=== PATIENT | male | born 1950 ===

== ENCOUNTER 2022-03-15 08:39 | Observation (INO) | payer OTHER ==
--- NOTE | 2022-03-11 09:44 | RAD REPORT ---
EXAM DESCRIPTION: Dwayne Silverman (2 Views)03/11/2022 9:39 am CLINICAL HISTORY: Preop for knee surgery. Hypertension COMPARISON: None FINDINGS: The lungs appear clear of acute infiltrate. The heart is normal size IMPRESSION: No acute abnormalities displayed
[2022-03-11 10:12] LABS: Absolute Lymphocytes (CBC) 2.3 K/uL (0.7-4.9); Hematocrit 49.3 % (39.6-49.0); Lymphocytes % 29.2 % (15.3-44.8); MCV 89.7 fL (80-100); MPV 9.8 fL (7.6-11.3); Protime INR 1.01
[2022-03-11 10:15] LABS: Specific Gravity 1.015 (1.005-1.030); Urine Bilirubin NEGATIVE (Negative); Urine Blood Negative (Negative); Urine Clarity Clear (Clear); Urine Color Light-Yellow (Yellow); Urine Glucose 4+ (Over) (Negative); Urine Protein NEGATIVE (Negative); Urine Urobilinogen Normal (Normal)
[2022-03-11 10:26] LABS: Albumin 3.8 g/dL (3.4-5.0); Bilirubin Total 0.7 mg/dL (0.2-1.0); Potassium 3.8 mmol/L (3.5-5.1); Protein, Total 8.5 g/dL (6.4-8.2)
[2022-03-11 11:42] LABS: SARS-CoV-2 Antigen Rapid Res Negative (Negative)
[2022-03-15] MEDS ORDERED: Oxycodone HCl/Acetaminophen 1 TAB TAB ONE (09:44)
[2022-03-15] MEDS ORDERED: ACETAMINOPHEN 500 MG TAB PO ONE (09:47)
[2022-03-15] MEDS ORDERED: GABAPENTIN 100 MG CAP PO ONE (09:47)
[2022-03-15] MEDS ORDERED: CELECOXIB 100 MG CAPSULE PO ONE (09:47)
[2022-03-15] MEDS ORDERED: TRANEXAMIC ACID 1,000 MG/10 ML VIAL IV ONE (10:23)
[2022-03-15] MEDS ORDERED: HYDROMORPHONE HCL 1 MG/ML INJ ONE (10:42)
[2022-03-15] MEDS ORDERED: dexAMETHasone 10 MG/ML VIAL ONE ×2 (10:45→10:46)
[2022-03-15] MEDS ORDERED: EPINEPHRINE/PF 1 MG/ML AMP ONE (10:45)
[2022-03-15] MEDS ORDERED: LIDOCAINE 1% MPF 5 ML VIAL ONE (10:45)
[2022-03-15] MEDS ORDERED: BUPIVACAINE 0.25% PF 30 ML VIAL ONE (10:45)
[2022-03-15] MEDS ORDERED: dexAMETHasone 4 MG/ML VIAL ONE (10:47)
[2022-03-15] MEDS ORDERED: propofoL 200 MG/20 ML VIAL IV ONE (10:47)
[2022-03-15] MEDS ORDERED: KETOROLAC 30 MG/ML INJ ONE (10:47)
[2022-03-15] MEDS ORDERED: FENTANYL CITR 100 MCG/2 ML ONE (10:47)
[2022-03-15] MEDS ORDERED: MIDAZOLAM HCL 2 MG/2 ML INJ ONE (10:47)
[2022-03-15] MEDS ORDERED: ONDANSETRON 4 MG/2 ML VIAL ONE (10:47)
[2022-03-15] MEDS ORDERED: LIDOCAINE 2% MPF 5 ML VIAL ONE (10:47)
[2022-03-15] MEDS ORDERED: CEFAZOLIN SODIUM 2 GM/VIAL IVPB ONE (11:08)
[2022-03-15] MEDS ORDERED: KETAMINE HCL 500 MG/5 ML VIAL ONE (11:40)
[2022-03-15] MEDS ORDERED: ONDANSETRON 4 MG/2 ML VIAL IV PRN (13:30)
[2022-03-15] MEDS ORDERED: HYDROCODONE/APAP 7.5/325 MG TAB PO PRN (13:30)
[2022-03-15] MEDS ORDERED: DOCUSATE NA 100 MG CAP PO PRN (13:30)
--- NOTE | 2022-03-15 13:30 | P.BOP ---
Preoperative diagnosis: Left knee arthritis Postoperative diagnosis: same Primary procedure: Left TKA Estimated blood loss: 100 Anesthesia: General Complications: None Transferred to: Recovery Room Condition: Good
--- NOTE | 2022-03-15 15:22 | OP ---
Date of Procedure: 03/15/2022 Surgeon: Kevan Beckford MD Preoperative Diagnosis: Left knee arthritis. Postoperative Diagnosis: Left knee arthritis. Procedure: Left total knee arthroplasty using [employer] Vanguard System. Estimated Blood Loss: 100 cc. Complications: There were no complications. Indications For Operation: Mr. Paz is a 71-year-old male, who has severe arthritic changes of his left knee. He has had a previous right total knee done with good result, but now has [id number] c hanges and pain which limits activities of daily living. This persisted despite conservative care. He does have a 2 to 3-degree flexion contracture. Risks, benefits, and alternatives to total knee ar throplasty have been discussed and he states he understands things as presented and wishes to proceed . Description Of Procedure: The patient was taken to the operating room and placed in supine position. General anesthesia was obtained by staff. He had previously had a block done in the holding area. After this, tourniquet was placed on superior left thigh. Left lower extremity was then prepped and draped in the usual fashion procedure. Following this, a standard anterior incision was taken down carefully through the skin and soft tissues. Meticulous hemostasis being maintained using Bovie elec trocautery. This leads to the appropriate level, which was then reflected both medially and laterall y. The superior medial aspect of the patella was then marked and he undergoes a standard medial para patellar arthrotomy with liberation of approximately 30 cc of rather normal-appearing synovial fluid. This reveals severe [id number] changes medially, less involved at the lateral aspect; however, de finitely patellofemoral arthritis is noted. The medial and lateral menisci were resected as well as the anterior cruciate ligament. The intramedullary alignment guide was then placed and initially cut was 72, but this felt that it could be overstuffing the knee. Decision was made to move forward wit h 70, does make a very small lateral notch, which was gently smoothed; however, definitely no medial notch and appears to be a good cut. After this, the remainder of the cuts were then made and attenti on was then turned to the tibia. The tibia was cut in standard fashion. It was then measured size 8 3, appeared to be a little small, but 87 maybe slightly overhanging, but it was felt given this size 6 with 250 pounds definitely did not want to undersize the tibia. Therefore, we moved forward with t he 87 and the trialed femur and tibia were placed with a thin polyethylene. It does come to full ext ension. It was stable to varus and valgus stress and appears to have good gaps and comes to full fle xion without undue tension. Attention was then turned to the patella, which was then calipered and c ut and the patella button was then placed. It was brought through range of motion and the patella gl ides excellently. After this, the trial instruments were removed. The box was cut. Bone plug was p laced and the tibia is punched. All of the final implants with the exception of the tibial polyethyl leslee were then cemented into place with a trial polyethylene being used as a spacer with the knee in e xtension while cement hardened. Any unsupported cement was removed. After this, the knee was andrew t through range of motion with the trial polyethylene. It did glide excellently. This comes to full extension and appears to be balanced. The trial polyethylene was removed. The final polyethylene w as placed without difficulty with a locking bar. The wound was copiously irrigated. Uncertain of an y aberrant cement or other issues were seen. After this, the extensor mechanism then repaired using heavy Ethibond sutures followed by again irrigating and closure of skin with Vicryl followed by stapl es. The patient was then placed in a well-padded sterile dressing, awakened, and taken to recovery r oom. /PAYAL Voice ID: [id number] Report ID: [id number]
--- OUTSIDE RECORDS SUMMARY | 2022-03-15 16:58 | XMS REPORT | Continuity of Care Document ---
:1950 Author Organization [facility] t Address [address] [place] [address] Care Team Providers Name Role Phone DESIREEVISHAL Attending Clinician Unavailable DESIREE_Ken Attending Clinician Unavailable Zhermelindo_F Attending Clinician Unavailable TIANA Admitting Clinician Unavailable Zhermelindo_F Admitting Clinician Unavailable Payers Payer Name Policy Type Policy Number Effective Date Expiration Date Elias [employer] - [id number] 2021 [facility] 00:00:00 (MEDICARE REPLACEMENT/ADVANTA GE - HMO) [facility] [id number] 2021 (PPO) 00:00:00 UHC - MEDICARE [id number] SOLUTIONS (MEDICARE REPLACEMENT PPO) [facility] [id number] REGION 4 Problems Condition Condition Condition Status Onset Resolution Last Treating Co mments Source Name Details Category Date Date Treatment Clinician Date Osteoarthr Osteoarthr Problem Active S tessa itis of itis of 5-26 [facility]i left knee Left Knee 00:00: ty joint Joint 00 [facility]osp[facility] Type 2 Type 2 Problem Active 2020-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 2 Commun i mellitus Mellitus 00:00: ty 00 [facility]ospita [facility] Clinics Chronic Chronic Problem Active 2020-05 Michael 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 Stage 3B 00 Hospit a l Clinics Gout Gout Problem Active 2019-05 [place] 05-23 Communi 00:00: ty 00 [facility]ospita [facility] Clinics Hypertensi Hypertensi Problem Active 2019-05 S tessa ve ve 1 Communi disorder Disorder 00:00: ty 00 Hospita l Clinics Asbestosis Asbestosis Problem Active 2019-05 S weeny 1 Communi 00:00: ty 00 [facility]ospita [facility] Clinics 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 Dysfunctio 00:00: ty n n 00 Hospita Clinics Acute gout Acute Gout Problem Active [facility] 8- da 00:00: Medical 00 Group Hypogonadi Hypogonadi Problem Active [facility] sm sm da [facility] Group Essential Essential Problem Active [facility] hypertensi Hypertensi da on on Medical Group Seasonal Seasonal Problem Active [facility] allergic Allergic da rhinitis Rhinitis Medica l Group Dermatitis Dermatitis Problem Active [facility] Low back Low Back Problem Active [facility] pain Pain da [facility] Chest pain Chest Pain Problem Active [facility] Serum Serum Problem Active r creatinine Creatinine da abnormal Abnormal Medica l Group Allergies, Adverse Reactions, Alerts Allergy Allergy Status Severity Reaction(s) Onset Inactive Treating Comm ents Source Name Type Date Date Clinician JOSIE Allergy Active Cough [place] INHIBITO to da RS substanc Medical e Group Social History Smoking Status Start Date Stop Date Source Never Smoker [facility] Former Smoker [facility] Medications Ordered Filled Start Stop Current Ordering Indication Dosage Frequency Signature Comments Components Source Medication Medication Date Date Medication? Clinician (SIG) Name Name allopurinol allopurinol No allopurino [place] 100 mg 100 mg l 100 mg Communi tablet TAKE tablet TAKE tablet ty 1 TABLET BY 1 TABLET BY TAKE 1 Hospita MOUTH ONCE MOUTH ONCE TABLET BY l DAILY FOR 7 DAILY FOR 7 MOUTH ONCE Clinics DAYS THEN DAYS THEN DAILY FOR TAKE 1 TAKE 1 7 DAYS TABLET TABLET THEN TAKE TWICE A DAY TWICE A DAY 1 TABLET TWICE A DAY atenolol atenolol No atenolol [place] 100 mg 100 mg 100 mg Communi tablet TAKE tablet TAKE tablet ty 1 TABLET BY 1 TABLET BY TAKE 1 Hospita MOUTH ONCE MOUTH ONCE TABLET BY l DAILY DAILY MOUTH ONCE Clinics DAILY Fluzone Fluzone No Fluzone [place] High-Dose High-Dose High-Dose Communi Quad Quad Quad ty Hospit a (PF) 240 (PF) 240 (PF) 240 l mcg/0.7 mL mcg/0.7 mL mcg/0.7 mL Clinics IM syringe IM syringe IM syringe lisinopril lisinopril No lisinopril [place] 20 20 20 Communi mg-hydrochl mg-hydrochl mg-hydroch ty orothiazide orothiazide [facility] 25 mg 25 mg de 25 mg l tablet TAKE tablet TAKE tablet Clinics 1 TABLET BY 1 TABLET BY TAKE 1 MOUTH ONCE MOUTH ONCE TABLET BY DAILY DAILY MOUTH ONCE DAILY sildenafil sildenafil No sildenafil [place] 100 mg 100 mg 100 mg Communi tablet TAKE tablet TAKE tablet ty 1 TABLET BY 1 TABLET BY TAKE 1 Hospita MOUTH ONCE MOUTH ONCE TABLET BY l DAILY DAILY MOUTH ONCE C linics NEEDED NEEDED DAILY NEEDED allopurinol allopurinol No allopurino [place] 100 mg 100 mg l 100 mg Communi tablet TAKE tablet TAKE tablet ty 1 TABLET BY 1 TABLET BY TAKE 1 Hospita MOUTH ONCE MOUTH ONCE TABLET BY l DAILY FOR 7 DAILY FOR 7 MOUTH ONCE Clinics DAYS THEN DAYS THEN DAILY FOR TAKE 1 TAKE 1 7 DAYS TABLET TABLET THEN TAKE TWICE A DAY TWICE A DAY 1 TABLET TWICE A DAY atenolol atenolol No atenolol [place] 100 mg 100 mg 100 mg Communi tablet TAKE tablet TAKE tablet ty 1 TABLET BY 1 TABLET BY TAKE 1 Hospita MOUTH ONCE MOUTH ONCE TABLET BY l DAILY DAILY MOUTH ONCE Clinics DAILY Fluzone Fluzone No Fluzone [place] High-Dose High-Dose High-Dose Communi Quad Quad Quad ty Hospit a (PF) 240 (PF) 240 (PF) 240 l mcg/0.7 mL mcg/0.7 mL mcg/0.7 mL Clinics IM syringe IM syringe IM syringe lisinopril lisinopril No lisinopril [place] 20 20 20 Communi mg-hydrochl mg-hydrochl mg-hydroch ty orothiazide orothiazide [facility] 25 mg 25 mg de 25 mg l tablet TAKE tablet TAKE tablet Clinics 1 TABLET BY 1 TABLET BY TAKE 1 MOUTH ONCE MOUTH ONCE TABLET BY DAILY DAILY MOUTH ONCE DAILY sildenafil sildenafil No sildenafil [place] 100 mg 100 mg 100 mg Communi tablet TAKE tablet TAKE tablet ty 1 TABLET BY 1 TABLET BY TAKE 1 Hospita MOUTH ONCE MOUTH ONCE TABLET BY l DAILY DAILY MOUTH ONCE C linics NEEDED NEEDED DAILY NEEDED atenolol 50 atenolol 50 No atenolol [place] mg tablet mg tablet 50 mg da TAKE 2 TAKE 2 tablet Medical TABLETS BY TABLETS BY TAKE 2 G roup MOUTH ONCE MOUTH ONCE TABLETS BY DAILY DAILY MOUTH ONCE DAILY Farxiga 10 Farxiga 10 No Farxiga 10 [place] mg tablet mg tablet mg tablet da TAKE 1 TAKE 1 TAKE 1 Medical TABLET BY TABLET BY TABLET BY Group MOUTH ONCE MOUTH ONCE MOUTH ONCE DAILY DAILY DAILY lisinopril lisinopril No lisinopril [place] 20 20 20 da mg-hydrochl mg-hydrochl mg-hydroch Medical orothiazide orothiazide [facility] Group 25 mg 25 mg de 25 mg tablet TAKE tablet TAKE tablet 1 TABLET BY 1 TABLET BY TAKE 1 MOUTH ONCE MOUTH ONCE TABLET BY DAILY DAILY MOUTH ONCE DAILY atenolol 50 atenolol 50 No atenolol [place] mg tablet mg tablet 50 mg Comm uni Take 2 Take 2 tablet ty tablets by tablets by Take 2 H ospita mouth once mouth once tablets by l daily daily mouth once Clinics daily chlorhexidi chlorhexidi No chlorhexid [place] ne ne ine Communi gluconate gluconate gluconate ty 0.12 % 0.12 % 0.12 % Hospita mouthwash mouthwash mouthwash l USE USE USE Clinics DIRECTED ON DIRECTED ON DIRECTED BOTTLE BOTTLE ON BOTTLE ga 10 ga 10 No xiga 10 [place] mg tablet mg tablet mg tablet Communi TAKE 1 TAKE 1 TAKE 1 ty TABLET BY TABLET BY TABLET BY Hospita MOUTH ONCE MOUTH ONCE MOUTH ONCE l DAILY DAILY DAILY Clinics Fluzone Fluzone No Fluzone [place] High-Dose High-Dose High-Dose Communi Quad Quad Quad ty Hospit a (PF) 240 (PF) 240 (PF) 240 l mcg/0.7 mL mcg/0.7 mL mcg/0.7 mL Clinics IM syringe IM syringe IM syringe lisinopril lisinopril No lisinopril [place] 20 20 20 Communi mg-hydrochl mg-hydrochl mg-hydroch ty orothiazide orothiazide [facility] 25 mg 25 mg de 25 mg l tablet TAKE tablet TAKE tablet Clinics 1 TABLET BY 1 TABLET BY TAKE 1 MOUTH ONCE MOUTH ONCE TABLET BY DAILY DAILY MOUTH ONCE DAILY sildenafil sildenafil No sildenafil [place] 100 mg 100 mg 100 mg Communi tablet TAKE tablet TAKE tablet ty 1 TABLET BY 1 TABLET BY TAKE 1 Hospita MOUTH ONCE MOUTH ONCE TABLET BY l DAILY DAILY MOUTH ONCE C linics NEEDED NEEDED DAILY NEEDED atenolol 50 atenolol 50 No atenolol [place] mg tablet mg tablet 50 mg Comm uni TAKE 2 TAKE 2 tablet ty TABLETS BY TABLETS BY TAKE 2 H ospita MOUTH ONCE MOUTH ONCE TABLETS BY l DAILY DAILY MOUTH ONCE Clinics DAILY chlorhexidi chlorhexidi No chlorhexid [place] ne ne ine Communi gluconate gluconate gluconate ty 0.12 % 0.12 % 0.12 % Hospita mouthwash mouthwash mouthwash l USE USE USE Clinics DIRECTED ON DIRECTED ON DIRECTED BOTTLE BOTTLE ON BOTTLE Farxiga 10 Farxiga 10 No Farxiga 10 [place] mg tablet mg tablet mg tablet Communi TAKE 1 TAKE 1 TAKE 1 ty TABLET BY TABLET BY TABLET BY Hospita MOUTH ONCE MOUTH ONCE MOUTH ONCE l DAILY DAILY DAILY Clinics Fluzone Fluzone No Fluzone [place] High-Dose High-Dose High-Dose Communi Quad Quad Quad ty Hospit a (PF) 240 (PF) 240 (PF) 240 l mcg/0.7 mL mcg/0.7 mL mcg/0.7 mL Clinics IM syringe IM syringe IM syringe Kenalog 40 Kenalog 40 No 40mg Kenalog 40 [place] mg/mL mg/mL mg/mL Communi suspension suspension suspension ty for for for Hospita injection injection injection l Take 40 mg Take 40 mg Take 40 mg Clinics by by by injection injection injection route. route. route. lisinopril lisinopril No lisinopril [place] 20 20 20 Communi mg-hydrochl mg-hydrochl mg-hydroch ty orothiazide orothiazide [facility] 25 mg 25 mg de 25 mg l tablet Take tablet Take tablet Clinics 1 tablet by 1 tablet by Take 1 mouth once mouth once tablet by daily daily mouth once daily oseltamivir oseltamivir No 1capsul BID oseltamivi [place] 75 mg 75 mg e(s) r 75 mg Communi capsule capsule capsule ty Take 1 Take 1 Take 1 Hospita capsule capsule capsule l twice a day twice a day twice a Clinics by oral by oral day by route for 5 route for 5 oral route days. days. for 5 days. sildenafil sildenafil No sildenafil [place] 100 mg 100 mg 100 mg Communi tablet TAKE tablet TAKE tablet ty 1 TABLET BY 1 TABLET BY TAKE 1 Hospita MOUTH ONCE MOUTH ONCE TABLET BY l DAILY DAILY MOUTH ONCE C linics NEEDED NEEDED DAILY NEEDED atenolol 50 atenolol 50 No atenolol [place] mg tablet mg tablet 50 mg Comm uni TAKE 1 TAKE 1 tablet ty TABLETS BY TABLETS BY TAKE 1 H ospita MOUTH ONCE MOUTH ONCE TABLETS BY l DAILY DAILY MOUTH ONCE Clinics DAILY Farxiga 10 Farxiga 10 No Farxiga 10 [place] mg tablet mg tablet mg tablet Communi TAKE 1 TAKE 1 TAKE 1 ty TABLET BY TABLET BY TABLET BY Hospita MOUTH ONCE MOUTH ONCE MOUTH ONCE l DAILY DAILY DAILY Clinics lisinopril lisinopril No 1 Q1D lisinopril [place] 20 20 20 Communi mg-hydrochl mg-hydrochl mg-hydroch ty orothiazide orothiazide [facility] 25 mg 25 mg de 25 mg l tablet Take tablet Take tablet Clinics 1 tablet 1 tablet Take 1 every day every day tablet by oral by oral every day route. route. by oral route. rosuvastati rosuvastati No rosuvastat [place] n 10 mg n 10 mg in 10 mg Commu ni tablet TAKE tablet TAKE tablet ty 1 TABLET BY 1 TABLET BY TAKE 1 Hospita MOUTH ONCE MOUTH ONCE TABLET BY l DAILY AT DAILY AT MOUTH ONCE C linics BEDTIME BEDTIME DAILY AT BEDTIME sildenafil sildenafil No sildenafil [place] 100 mg 100 mg 100 mg Communi tablet TAKE tablet TAKE tablet ty 1 TABLET BY 1 TABLET BY TAKE 1 Hospita MOUTH ONCE MOUTH ONCE TABLET BY l DAILY DAILY MOUTH ONCE C linics NEEDED NEEDED DAILY NEEDED Immunizations Ordered Immunization Filled Immunization Date Status Commen ts Source Name Name influenza, influenza, 2021-02-12 Completed [place] injectable, injectable, 00:00:00 [facility] p quadrivalent quadrivalent influenza, influenza, 2020-03-02 Completed [facility] Communi ty injectable, injectable, 00:00:00 Hospital Cli nics quadrivalent quadrivalent influenza, influenza, 2020-03-02 Completed [place] Communi ty injectable, injectable, 00:00:00 Hospital Cli nics quadrivalent quadrivalent influenza, influenza, 2020-03-02 Completed [place] Communi ty injectable, injectable, 00:00:00 Hospital Cli nics quadrivalent quadrivalent influenza, influenza, 2020-03-02 Completed [place] Communi ty injectable, injectable, 00:00:00 Hospital Cli nics quadrivalent quadrivalent influenza, influenza, 2020-03-02 [facility] Hospital Cli nics quadrivalent quadrivalent influenza, high dose influenza, high 2019-03-28 Completed [place] seasonal dose seasonal 11:05:00 Medical Bravo up pneumococcal pneumococcal 2016-07-04 Completed [place] conjugate PCV 13 conjugate PCV 13 15:02:00 Me dical Group influenza, high dose influenza, high 2016-03-29 Completed [place] seasonal dose seasonal 12:22:00 Medical Bravo up influenza, influenza, 2013-05-15 Completed [place] injectable, injectable, 00:00:00 Medical Grou p quadrivalent quadrivalent Vital Signs Vital Name Observation Time Observation Value Comments Source BP Diastolic 2022-02-18 00:00:00 84 mm[Hg] [facility] Height 2022-02-18 00:00:00 71 [in_i] [facility] s BMI (Body Mass 2022-02-18 00:00:00 35.6 kg/m2 [facility]) [facility] s BP Systolic 2022-02-18 00:00:00 128 mm[Hg] [facility] s Body Weight 2022-02-18 00:00:00 4080 [oz_av] [facility] s BP Diastolic 2021-12-21 00:00:00 84 mm[Hg] [facility] Height 2021-12-21 00:00:00 71 [in_i] [facility] s BP Systolic 2021-12-21 00:00:00 140 mm[Hg] [facility] s BP Diastolic 2021-10-07 00:00:00 82 mm[Hg] [facility] Height 2021-10-07 00:00:00 71 [in_i] [facility] s BMI (Body Mass 2021-10-07 00:00:00 36.1 kg/m2 [facility]) [facility] s BP Systolic 2021-10-07 00:00:00 118 mm[Hg] [facility] s Body Weight 2021-10-07 00:00:00 4144 [oz_av] [facility] BP Diastolic 2021-05-12 00:00:00 79 mm[Hg] [facility] Height 2021-05-12 00:00:00 72 [in_i] [facility] BMI (Body Mass 2021-05-12 00:00:00 34.9 kg/m2 [facility] Medical Index) Group BP Systolic 2021-05-12 00:00:00 116 mm[Hg] [facility] Body Weight 2021-05-12 00:00:00 4114 [oz_av] [facility] BP Diastolic 2021-04-19 00:00:00 84 mm[Hg] [facility] Height 2021-04-19 00:00:00 71 [in_i] [facility] s BMI (Body Mass 2021-04-19 00:00:00 37.8 kg/m2 [facility]) [facility] s BP Systolic 2021-04-19 00:00:00 122 mm[Hg] [facility] s Body Weight 2021-04-19 00:00:00 4336 [oz_av] [facility] BP Diastolic 2020-09-29 00:00:00 84 mm[Hg] [facility] Height 2020-09-29 00:00:00 71 [in_i] [facility] s BMI (Body Mass 2020-09-29 00:00:00 37.5 kg/m2 [facility]) [facility] s BP Systolic 2020-09-29 00:00:00 138 mm[Hg] [facility] Body Weight 2020-09-29 00:00:00 4304 [oz_av] [facility] BP Diastolic 2020-01-07 00:00:00 89 mm[Hg] [facility] Height 2020-01-07 00:00:00 72 [in_i] [facility] BP Systolic 2020-01-07 00:00:00 154 mm[Hg] [facility] BP Diastolic 2019-07-25 00:00:00 71 mm[Hg] [facility] Height 2019-07-25 00:00:00 72 [in_i] [facility] BMI (Body Mass 2019-07-25 00:00:00 36.1 kg/m2 [facility]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) Group BP Systolic 2019-07-25 00:00:00 122 mm[Hg] [facility] Body Weight 2019-07-25 00:00:00 4256 [oz_av] [facility] Height 2019-03-28 00:00:00 72 [in_i] [facility] BMI (Body Mass 2019-03-28 00:00:00 35.2 kg/m2 [facility]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) Group Body Weight 2019-03-28 00:00:00 4153.6 [oz_av] [facility] BP Diastolic 2018-10-24 00:00:00 87 mm[Hg] [facility] Height 2018-10-24 00:00:00 72 [in_i] [facility] BMI (Body Mass 2018-10-24 00:00:00 34.9 kg/m2 [facility] Medical Index) Group BP Systolic 2018-10-24 00:00:00 161 mm[Hg] [facility] Body Weight 2018-10-24 00:00:00 4112 [oz_av] [facility] Procedures Procedure Date / Time Performing Clinician Source Performed XR, knee 2021-10-07 00:00:00 [facility] XR, ankle, 3 or more 2020-01-07 00:00:00 [facility] XR, chest 2018-10-24 00:00:00 [facility] Colonoscopy 2013-05-15 00:00:00 [facility] Knee Surgery 2006-05-15 00:00:00 [facility] Colonoscopy 2003-05-15 00:00:00 [facility] Total Replacement of 1985-05-15 00:00:00 [facility] Knee Joint [facility] s Knee Surgery 1971-05-15 00:00:00 [facility] Appendectomy [facility] Tonsilectomy/adenoids [facility] Appendectomy [facility] Other [facility] Tonsillectomy [facility] Plan of Care Planned Activity Planned Date Details Comments Source Diagnostic Test 2022-02-18 CMP, serum or [place] Comm unity Pending 00:00:00 plasma [code = Hospital Clin ics CMP, serum or plasma] Diagnostic Test 2022-02-18 HbA1c (hemoglobin [facility] Pending 00:00:00 A1c), blood [code Hospital C linics = HbA1c (hemoglobin A1c), blood] Diagnostic Test 2021-05-12 HbA1c (hemoglobin [facility] Pending 00:00:00 A1c), blood [code Group = HbA1c (hemoglobin A1c), blood] Diagnostic Test 2021-05-12 BMP, serum or [place] [facility] Pending 00:00:00 plasma [code = Group BMP, serum or plasma] Future Appointment 2022-05-21 Vishal Ramírez [facility] 00:00:00 [address]; [facility] [address], [place] [address] Encounters Start End Encounter Admission Attending Care Care Encounter Source Date/Time Date/Time Type Type Clinicians Facility Department ID 2022-03-11 Outpatient TACOS RAMÍREZ [facility] [id number] Common 08:14:02 VISHAL [id number] [facility] 2021-11-04 Outpatient TACOS RAMÍREZ [facility] [id number] Common 09:56:02 VISHAL [id number] [facility] 2022-02-22 2022-02-22 Outpatient ERCHASTITY_Ken [facility] [id number] [place] 00:00:00 00:00:00 011 Commun i ty Hospita l Clinics 2022-02-18 2022-02-18 Outpatient ERCHASTITY_Ken [facility] [id number] [place] 00:00:00 00:00:00 007 Commun i ty Hospita l Clinics 2022-02-18 2022-02-18 Vishal [facility] [place] - [place] [id number] [place] 00:00:00 00:00:00 [facility] DO: [address] Hospit a [facility], [facility], [address] DESIREE , Ph. 2022-01-13 2022-01-13 Outpatient ERICKSON_R [facility] [id number] - [place] 00:00:00 00:00:00 901 Commun i ty Hospita l Clinics 2021-12-21 2021-12-21 Outpatient ERICKSON_R [facility] [id number] - [place] 00:00:00 00:00:00 809 Commun i ty Hospita l Clinics 2021-12-21 2021-12-21 Outpatient Desiree [facility] [id number] 00:00:00 00:00:00 Vishal [id number] Peter [id number] 2021-12-21 2021-12-21 Vishal [facility] [place] 00:00:00 00:00:00 [facility] DO: [address] Hospit a [facility], HOSPITAL [place], [place] CLINIC, [address] DESIREE , Ph. 2021-10-07 2021-10-07 Outpatient ERICKSON_R [facility] [id number] - [place] 03:56:00 03:56:00 526 Commun i ty Hospita [facility] 2021-10-07 2021-10-07 Vishal [facility] [place] 00:00:00 00:00:00 [facility] ty DO: [address] Hospit a [facility], H[facility]PITAL [place], [place] CLINIC, [address] DESIREE , Ph. 2021-10-07 2021-10-07 [facility] [id number] 00:00:00 00:00:00 Vishal [id number] Peter [id number] 2021-09-06 2021-09-06 Outpatient ERICKSON_R [facility] [id number] - [place] 12:12:00 12:12:00 425 Commun i ty Hospita l Clinics 2021-08-05 2021-08-05 Outpatient ERICKSON_R [facility] [id number] - [place] 11:12:00 11:12:00 324 Commun i ty Hospita l Clinics 2021-05-12 2021-05-12 Bhaskar Zunjanie_F MM [place] - [id number] [place] 00:00:00 00:00:00 Erick Ferro, Medical Medical MD: [address] [place] [address] [address], [place] [address] , Ph. 2021-05-06 2021-05-06 Outpatient ERICKSON_R [facility] [id number] - [place] 05:51:00 05:51:00 223 Commun i ty Hospita l Clinics 2021-04-19 2021-04-19 Outpatient ERICKSON_R [facility] [id number] - [place] 05:36:00 05:36:00 206 Commun i ty Hospita l Clinics 2021-04-19 2021-04-19 Outpatient Desiree [facility] [id number] 00:00:00 00:00:00 Vishal [id number] Peter [id number] 2021-04-19 2021-04-19 Vishal [facility] [place] [id number] [place] 00:00:00 00:00:00 [facility] DO: [address] Hospit a [facility] [address], HOSPITAL Clinic s [place], [place] CL[place]IC, [address] DESIREE , Ph. [phone] 2020-09-29 2020-09-29 Outpatient ERICKSON_R [facility] [id number] [place] 02:56:00 02:56:00 518 Commun i ty Hospita l Clinics 2020-09-29 2020-09-29 Outpatient Desiree [facility] [id number] 00:00:00 00:00:00 Vishal [id number] Peter [id number] 2020-09-29 2020-09-29 Vishal [facility] [place] - [place] 18 [place] 00:00:00 00:00:00 [facility] DO: [address] Hospit a [facility] [address], HOSPITAL Clinic s [place], [place] CL[place]IC, [address] DESIREE , Ph. 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 2019-09-04 2019-09-04 Outpatient Zuniga_F [facility] MMG [id number] [place] 04:29:00 04:29:00 422 Medical Group 2019-07-25 2019-07-25 Bhaskarerika Arzola_F [facility] [place] - [id number] [place] 00:00:00 00:00:00 Erick Huffman 312 Lenny Ferro Medical MD: [address] [place] [address] [address], [place] [address] , Ph. 2019-06-01 2019-06-01 Outpatient Dariusz_F [facility] [id number] [place] 12:05:00 12:05:00 118 Medical Group 2019-03-28 2019-03-28 [facility] [place] - [id number] [place] 00:00:00 00:00:00 Erick Huffman 114 Lenny Ferro Medical MD: [address] [place] [address] 201, [place] [address] , Ph. 2018-10-24 2018-10-24 Bhaskar [facility] [place] - [id number] 0 [place] 00:00:00 00:00:00 Erick Huffman 612 Lenny Ferro MD: [address] [place] [address] 201, [place] [address] , Ph. Results Test Description Test Time Test Comments Results Result Comments Source CBC W Auto Differential panel - Blood 2020-01-07 07:22:00 Test Item Value Reference Range Interpretation Comme nts white blood count (test code = white blood count) 9.2 K/uL 4.0- 12.3 red blood count (test code = red blood count) 5.41 M/uL 3.80-5.8 0 hemoglobin (test code = hemoglobin) 16.2 g/dL 11.7-17.2 hematocrit (test code = hematocrit) 50.4 % 35.0-51.0 MCV [Entitic volume] (test code = 01645-8) 93.2 fL 83-100 mean corpuscular hemoglobin (test code = mean corpuscular 29.9 pg 26.8-33.4 hemoglobin) mean corpuscular HGB conc (test code = mean corpuscular HGB 32.1 g/ dL 30-35 conc) red cell distribution width (test code = red cell 13.7 % 12.0 -14.0 distribution width) platelet count (test code = platelet count) 117 K/uL 175-450 L Platelets reticulated/100 platelets in Blood by Automated 20.0 % 0-8 H count (test code = 84964-5) mean platelet volume (test code = mean platelet volume) 12.5 fL 9.4-12.6 Segmented neutrophils/100 leukocytes in Blood (test code = 70.3 % 44.7-82.4 64517-4) Immature granulocytes [#/volume] in Blood (test code = 0.0 K/uL 0.0-0.03 87126-8) lymphocyte% (test code = lymphocyte%) 19.5 % 10.0-50.0 mono % (test code = mono %) 7.7 % 3.9-13.4 eos % (test code = eos %) 1.8 % 0.0-6.4 Basophils/100 leukocytes in Unspecified specimen (test code 0.3 % 0.2-1.2 = 25760-7) Band form neutrophils [#/volume] in Blood (test code = 6.49 K/uL 1.78-5.38 H 12238-3) Lymphocytes [#/volume] in Unspecified specimen by Automated 1.8 K/u L 1.32-3.57 count (test code = 17217-3) mono # (test code = mono #) 0.71 K/uL 0.30-0.82 eos # (test code = eos #) 0.17 K/uL 0.04-0.54 basophil # (test code = basophil #) 0.03 K/uL 0.01-0.08 NRBC% (test code = NRBC%) 0 /100 WBC 0-0.2 NRBC# (test code = NRBC#) 0 K/uL [facility], method unspecified - [id number] 07:22:00NeutrophilsBandLymphocyteAtypical LymphMonocyteEosinophilPlatelet EstimatePlatelet MorphologyHypochro masiaPoikilocytosisAnisocytosisOvalocytesDifferential comment-PMaNorthwest Mississippi Medical CenterComprehensive metabolic 2000 panel - Serum or [id number] 07:22:00 Test Item Value Reference Range Interpretation Comments Glucose [Mass/volume] in Serum or 109 mg/dL 82-115 Plasma (test code = 2345-7) Urea nitrogen [Mass/volume] in 17 mg/dL 8-23 Serum or Plasma (test code = 3094-0) osmolality calculated,serum (test 283 mOsm/kg 280-300 code = osmolality calculated,serum) creatinine (test code = 1.3 mg/dL 0.70-1.20 H creatinine) glomerular filtration rate (test 54.73 L code = glomerular filtration rate) Urea nitrogen/Creatinine [Mass 13.1 12-20 Ratio] in Serum or Plasma (test code = 3097-3) sodium level (test code = sodium 141 mmol/L 135-145 level) potassium level (test code = 4.3 mmol/L 3.5-5.2 potassium level) chloride level (test code = 103 mmol/L 98-108 chloride level) CO2 (test code = CO2) 25 mmol/L 21-32 anion gap (test code = anion gap) 17.3 mEq/L 12-20 calcium level (test code = 10.0 mg/dL 8.8-10.2 calcium level) total protein (test code = total 7.8 g/dL 6.6-8.7 protein) albumin (test code = albumin) 4.0 g/dL 3.5-5.2 globulin (test code = globulin) 3.8 gm/dL A/G ratio (test code = A/G ratio) 1.1 >1.0 bilirubin,total (test code = <0.3 0.0-1.2 bilirubin,total) AST/SGOT (test code = AST/SGOT) 14 U/L 15-40 L Alanine aminotransferase 16 U/L 0-41 [Enzymatic activity/volume] in Serum or Plasma (test code = 1742-6) Alkaline phosphatase [Enzymatic 96 U/L 40-130 activity/volume] in Serum or Plasma (test code = 6768-6) [facility] HospitalUrate [Mass/volume] in [id number] 07:22:00 Test Item Value Reference Range Interpretation Comments uric acid (test code = uric acid) 8.9 mg/dL 3.4-7.0 H [facility]
--- NOTE | 2022-03-15 17:09 | P.CNS ---
Date of Consult: 03/15/22 Reason for Consult: Medical management Requesting Physician: Kevan Beckford Chief Complaint: Left total knee replacement History of Present Illness: 71-year-old gentleman with a history of hypertension and diabetes(diet-controlled) heart left total knee replacement done by Dr. Beckford today. Patient is admitted to the medical floor for pain control. Hospitalist service is consulted to assist with management of his medical p roblems and pain control. Allergies No Known Allergies Allergy (Verified 03/11/22 09:08) Home Medications: Acetaminophen [Tylenol Extra Strength] 1 - 2 tab PO PRN PRN 03/11/22 Atenolol [Tenormin] 50 mg PO DAILY 03/11/22 Dapagliflozin Propanediol [Farxiga] 5 mg PO DAILY 03/11/22 Lisinopril [Zestril] 20 mg PO DAILY 03/11/22 Rosuvastatin [Crestor] 10 mg PO BEDTIME 03/11/22 - Past Medical/Surgical History Diabetic: Yes -: diabetes -: hypertension -: high cholesterol -: total right knee replacement -: appendectomy -: tonsillectomy - Family History Father Medical History: Hypertension, Diabetes Mother Medical History: Hypertension, Diabetes - Social History Alcohol use: No CD- Drugs: No Caffeine use: No Place of Residence: Home Review of Systems Other: Patient denies any shortness of breath or fever. He denies any constipation. He denies any cough. Except as documented all other systems reviewed and negative. Physical Examination Temp Pulse Resp BP Pulse Ox 97 F 62 16 120/79 03/15/22 15:15 03/15/22 16:30 03/15/22 16:30 03/15/22 16:30 General: Alert, In no apparent distress, Oriented x3 HEENT: Mucous membr. moist/pink, Sclerae nonicteric Neck: Supple, JVD not distended Respiratory: Clear to auscultation bilaterally, Normal air movement Cardiovascular: No edema, Regular rate/rhythm, Normal S1 S2 Capillary refill: <2 Seconds Gastrointestinal: Normal bowel sounds, Soft and benign, Non-distended, No tenderness Musculoskeletal: Other (Immobilized left knee) Integumentary: No rashes, No cyanosis Neurological: Normal strength at 5/5 x4 extr, Cranial nerves 3-12 intact Lymphatics: No axilla or inguinal lymphadenopathy - Problems (1) Hypertension Current Visit: Yes Status: Acute (2) Type 2 diabetes mellitus Current Visit: Yes Status: Acute (3) Status post total left knee replacement Current Visit: Yes Status: Acute Conclusions/Impression: Pain management with oral [place]. Add morphine for uncontrolled pain. Insulin sliding scale for glucose management. Patient is on Farxiga as outpatient. Hold home antihypertensives as patient is currently normotensive. Physical therapy. DVT prophylaxis
[2022-03-15] MEDS: CEFAZOLIN 1 GM in NA CHLORIDE 0.9% 50 ML IVPB SCH (17:39)
[2022-03-15 21:14] VITALS: BMI 33.9
[2022-03-15] MEDS ORDERED: GLUCAGON 1 MG/VIAL IM PRN (21:22)
[2022-03-15] MEDS ORDERED: D50W 25 GM/50 ML SYRINGE IV PRN (21:22)
[2022-03-15] MEDS ORDERED: D10W 125 ML IV PRN (21:29)
[2022-03-15] MEDS: INSULIN -REGULAR HUMAN 50 UNIT/0.5 ML ML SQ SCH (22:05)
[2022-03-16] MEDS: CEFAZOLIN 1 GM in NA CHLORIDE 0.9% 50 ML IVPB SCH ×2 (00:27→08:39)
[2022-03-16] MEDS: ENOXAPARIN 30 MG/0.3 ML SQ SCH ×2 (05:37→08:39)
[2022-03-16 05:52] LABS: Hematocrit 46.4 % (39.6-49.0)
[2022-03-16] MEDS ORDERED: INSULIN -REGULAR HUMAN 50 UNIT/0.5 ML ML SQ SCH (07:30)
[2022-03-16] MEDS: INSULIN -REGULAR HUMAN 50 UNIT/0.5 ML ML SQ SCH (08:38)
[2022-03-16 10:09] VITALS: BP 135/81; TEMP 97.9
--- NOTE | 2022-03-16 10:35 | P.DS ---
Admission Date: 03/15/22 Discharge Date: 03/16/22 Disposition: ROUTINE DISCHARGE Discharge Condition: FAIR Reason for Admission: Left total knee replacement - Problems (1) Hypertension Status: Acute (2) Type 2 diabetes mellitus Status: Acute (3) Status post total left knee replacement Status: Acute Brief History of Present Illness: 71-year-old gentleman with a history of hypertension and diabetes(diet- controlled) heart left total knee replacement done by Dr. Beckford today. Patient is admitted to the medical floor for pain control. Hospitalist service is consulted to assist with management of his medical problems and pain control. Hospital Course: Patient placed under observation on the medical floor and treated with oral [place] for pain. He was seen and evaluated by physical therapy. Patient was able to ambulate in the hallway with a walker, no other support needed. Patient's pain is well controlled and he is deemed stable for discharge. He is discharged with [place] for pain control and Xarelto for DVT prophylaxis. Vital Signs/Physical Exam: Temp Pulse Resp BP Pulse Ox 97.9 F 75 14 135/81 94 03/16/22 08:00 03/16/22 08:00 03/16/22 08:00 03/16/22 08:00 03/16/22 08:00 Laboratory Data at Discharge: WBC 8.00 K/uL (4.3-10.9) 03/11/22 09:58 Hgb 15.4 g/dL (13.6-17.9) 03/16/22 05:36 Hct 46.4 % (39.6-49.0) 03/16/22 05:36 Plt Count 198 K/uL (152-406) 03/11/22 09:58 PT 11.1 SECONDS (9.5-12.5) 03/11/22 09:58 INR 1.01 03/11/22 09:58 APTT 30.0 SECONDS (24.3-36.9) 03/11/22 09:58 Sodium 137 mmol/L (136-145) 03/11/22 09:58 Potassium 3.8 mmol/L (3.5-5.1) 03/11/22 09:58 BUN 23 mg/dL (7-18) H 03/11/22 09:58 Creatinine 1.30 mg/dL (0.55-1.3) 03/11/22 09:58 Glucose 135 mg/dL (74-106) H 03/11/22 09:58 Total Bilirubin 0.7 mg/dL (0.2-1.0) 03/11/22 09:58 AST 29 U/L (15-37) 03/11/22 09:58 ALT 67 U/L (12-78) 03/11/22 09:58 Alkaline Phosphatase 105 U/L (45-117) 03/11/22 09:58 Home Medications: Acetaminophen [Tylenol Extra Strength] 1 - 2 tab PO PRN PRN 03/11/22 Atenolol [Tenormin] 50 mg PO DAILY 03/11/22 Dapagliflozin Propanediol [Farxiga] 10 mg PO DAILY 03/11/22 Lisinopril [Zestril] 20 mg PO DAILY 03/11/22 Rosuvastatin [Crestor*] 10 mg PO DAILY 03/11/22 Docusate [Colace Cap*] 200 mg PO DAILY PRN #60 cap 03/16/22 Hydrocodone 7.5/APAP 325 [[place] 7.5/325 mg*] 1 tab PO Q4H PRN #15 tab 03/16/22 New Medications: Docusate [Colace Cap*] 200 mg PO DAILY PRN #60 cap PRN Reason: Constipation Hydrocodone 7.5/APAP 325 [[place] 7.5/325 mg*] 1 tab PO Q4H PRN #15 tab PRN Reason: Pain Scale 5-7 (Moderate) Diet: ADA Activity: Weight bearing as tolerated Followup: Russ Franco MD [Primary Care Provider] - Kevan Beckford MD [ACTIVE - CAN ADMIT] - 1-2 Weeks
[2022-03-16 11:01] VITALS: O2SAT 94
== END 2022-03-16 12:00 | disposition home or self-care (01) ==
LOC: OR 08:39 → 4TH 16:53
PROVIDERS: ADMIT Orthopaedic Surgery; ATTEND Orthopaedic Surgery
PROC: 0SRD069 Replacement of Left Knee Joint with Oxidized Zirconium on Polyethylene Synthetic Substitute, Cemented, Open Approach (ICD-10-PCS; principal; 2022-03-15 11:00)
DX: M17.12 Unilateral primary osteoarthritis, left knee (principal); M25.562 Pain in left knee; I10 Essential (primary) hypertension; E11.9 Type 2 diabetes mellitus without complications; E78.00 Pure hypercholesterolemia, unspecified
CPT/HCPCS: 85025; 36415 ×2; 86900; 86850; 85610; 86901; 82947 ×6; 88304; 88311; 85730; 85018; 85014; 81003; 80053; 71046; 97110; 97116; 97161; 94010; 87811; 27447; J2704; J1100 ×3; J0171; J2001 ×2; J1815 ×2; J1650 ×2; J2250; J3010; J1170; J2405; J0690 ×3; G0378; G0379